=== PATIENT | female | born 1960 | race Caucasian/White ===

== ENCOUNTER → 2017-05-07 | Outpatient (CLI) | payer OTHER ==
[~2017-05-07] MED LIST: DITROPAN XL5 MG PO; ELIMITE 5%60 GM T; LISINOPRIL2.5 MG PO; MELOXICAM15 MG PO; PRILOSEC10 M1 PO; REMERON30 M1 PO; RISPERDAL3 M1 PO; TRAMADOL HCL50 MG PO; TRAZODONE HYDR100 MG PO
[2017-05-07 08:57] LABS: BASO % 0.6 % (0.0-1.0); EOS # 0.1 10*3/uL (0.0-0.4); EOS % 0.9 % (1.0-4.0); HEMATOCRIT 40.2 % (37.0-47.0); HEMOGLOBIN 13.3 g/dl (12.0-16.0); LYMPH # 2.3 10*3/uL (1.3-4.4); LYMPH % 33.6 % (27.0-41.0); MEAN CELL VOLUME 93.9 fl (81.0-99.0); MEAN CORPUSCULAR HGB 31.1 pg (27.0-31.0); MEAN CORPUSCULAR HGB CONC 33.1 g/dl (33.0-37.0); MEAN PLATELET VOLUME 11.4 fl (9.6-12.3); MONO # 0.4 10*3/uL (0.1-1.0); MONO % 5.6 % (3.0-9.0); PLATELET COUNT AUTOMATED 218 10*3/uL (130-400); RED BLOOD COUNT 4.28 10*6/uL (4.10-5.10); RED CELL DISTRI WIDTH 14.5 % (0-14.5); WHITE BLOOD COUNT 6.8 10*3/uL (4.8-10.8)
[2017-05-07 09:27] LABS: ALBUMIN 3.9 gm/dl (3.1-4.5); BILIRUBIN, TOTAL 0.3 mg/dl (0.2-1.0); BUN 10 mg/dl (7-24); CARBON DIOXIDE 30 mmol/L (21-32); CHLORIDE 104 mmol/L (98-107); CHOLESTEROL 171 mg/dL (<200); EST GLOM FILT AFRICAN AMERICAN > 60 ml/min; GLUCOSE 98 mg/dL (65-99); HDL CHOLESTEROL 72 mg/dl (40-60); LDL CHOLESTEROL 71 mg/dL (9-159); POTASSIUM 4.3 mmol/L (3.5-5.1); SGOT/AST 23 IU/L (3-35); SGPT/ALT 44 U/L (12-78); SODIUM 139 mmol/L (136-145); TOTAL PROTEIN 7.5 gm/dL (6.4-8.2); TRIGLYCERIDES 138 mg/dl (<150); VLDL CHOLESTEROL 28 mg/dL (6-40)
[2017-05-07 09:36] LABS: ALKALINE PHOSPHATASE 105 U/L (45-117)
== END ==
LOC: LAB 08:39
PROVIDERS: Nurse Practitioner Family
DX: J44.9 Chronic obstructive pulmonary disease, unspecified (principal); M81.0 Age-related osteoporosis without current pathological fracture; E55.9 Vitamin D deficiency, unspecified; E78.5 Hyperlipidemia, unspecified; R63.4 Abnormal weight loss; R19.7 Diarrhea, unspecified; F17.200 Nicotine dependence, unspecified, uncomplicated; I10 Essential (primary) hypertension; M47.894 Other spondylosis, thoracic region

== ENCOUNTER → 2017-10-09 | Outpatient (CLI) | payer OTHER | END | disposition home or self-care (01) | LOC: CT 09-20 11:00 | DX: D35.02 Benign neoplasm of left adrenal gland (principal); I25.10 Atherosclerotic heart disease of native coronary artery without angina pectoris; K31.9 Disease of stomach and duodenum, unspecified; R19.00 Intra-abdominal and pelvic swelling, mass and lump, unspecified site ==

== ENCOUNTER 2018-02-04 09:59 | Inpatient (IN) | payer OTHER ==
[~2018-02-04] VITALS: Ht 157.4 cm; Wt 49.7 kg
--- NOTE | ~2018-02-04 | PR ---
[place], [place] PROGRESS NOTE NAME: ANTONY WILLSON UNIT #: [id number] ROOM: 405 DOCTOR: BANDAR GRACE MD BIRTHDATE: [birth year] DOS: 02/06/2018 PULMONARY FOLLOWUP SUBJECTIVE: The patient noted quite comfortable. The patient resting in the bed, reduction shortness of breath, cough and wheezing was noted in the last 24 hours. Wanted to be discharged home. OBJECTIVE: VITAL SIGNS: For the patient shows a normal temperature, respiratory rate 18, heart rate 97, blood pressure 166/80. The pulse oxygen saturation 3 liters nasal cannula 95% saturation. HEENT: Examination shows head was atraumatic. Eyes nonicterus. NECK: Supple. CARDIOVASCULAR: S1, S2 is audible. LUNGS: Noted with moderate decreased breath sounds with occasional wheezing, no crackles. ABDOMEN: Soft, nontender. LABORATORY DATA: CT scan of the chest that was done with contrast, which was reviewed shows evidence of area of infiltration with nodular opacities noted in the lower lung. Small mediastinal and hilar lymph node enlargement was noted. IMPRESSION: 1. The patient with possibility of acute pneumonia. The patient's lower lung at this time noted acute with exacerbation of chronic obstructive pulmonary disease and acute chronic nicotine dependence. 2. Rule out pulmonary nodule mixed with the current acute infiltration. PLAN OF THERAPY: The patient could be discharged home on oral antibiotics and tapering dose of prednisone. She was recommended about followup in the office for further assessment to exclude any pulmonary nodules in the lungs. The patient with followup CT scan of the chest in the next few weeks. Abstinence of tobacco was recommended. The tobacco cessation was done for the patient more than 3 minutes. [place], [place] PROGRESS NOTE NAME: ANTONY WILLSON UNIT #: [id number] ROOM: 405 DOCTOR: BANDAR GRACE MD BIRTHDATE: [birth year] BANDAR PRAKASH MD CM:PNTRANS [id number] BANDAR HUNTER MD 02/06/18 1404 interface
--- NOTE | ~2018-02-04 | PROC NOTE ---
[place], [place] PROCEDURE NOTE NAME: ANTONY WILLSON UNIT #: [id number] ROOM: 405 DOCTOR: SUNDAY RENTERIA BIRTHDATE: [birth year] DOS: 02/05/2018 MODIFIED BARIUM SWALLOW LOCATION: [facility], room 405, bed 1. ORDERING PHYSICIAN: Dr. Echevarria. RADIOLOGIST: ____. BACKGROUND INFORMATION: The patient is a 57-year-old female who was seen for modified barium swallow. This test was ordered to rule out aspiration. Medical history is significant for acute on chronic respiratory failure, COPD exacerbation, sepsis and pneumonia. Further medical history includes emphysema, HTN and Tourette syndrome. The patient is currently receiving a regular diet and thin liquids. She denied any swallowing difficulty. For today's assessment, she was alert and able to follow commands. The patient was slightly short of breath, but reported that this is her baseline. She was receiving oxygen via nasal cannula. Oral peripheral examination revealed edentulous status. Lingual, labial and buccal skills were within normal limits in terms of strength, range of motion and coordination. METHODS AND MATERIALS USED FOR THE EXAM: The patient was positioned in the lateral plane and the exam was viewed under fluoroscopy. The patient was presented with a variety of consistencies to assess swallowing skills including applesauce mixed with barium presented in half teaspoon amounts, barium-coated banana and bread taken in bite size pieces and thin liquid barium taken by cup and straw. ORAL PHASE: Unremarkable. PHARYNGEAL PHASE: Unremarkable. ESOPHAGEAL PHASE: This phase of the swallow was not formally assessed during this exam. IMPRESSIONS AND RECOMMENDATIONS: Based upon assessment results, this 57-year-old patient presents with oral and pharyngeal swallowing skills that are within normal limits. Recommend she remain on regular diet and thin liquid. Follow up therapy is not warranted. Results and recommendations were shared with the patient and her nurse and they verbalized understanding. Thank you very much for this referral. Should you have any questions regarding this patient, please contact the speech pathologist at [phone]. [place], [place] PROCEDURE NOTE NAME: ANTONY WILLSON UNIT #: [id number] ROOM: 405 DOCTOR: SUNDAY RENTERIA BIRTHDATE: [birth year] RENTERIA CM:PROCNOTE:PROCEDURE NOTE 1425 [id number] SUNDAY RENTERIA
--- NOTE | ~2018-02-04 | CON ---
[place], [place] REPORT OF CONSULTATION NAME: ANTONY WILLSON [facility] #: [id number] UNIT #: [id number] ROOM: 405 DOCTOR: OLINDA HUNTER MDBANDAR BIRTHDATE: [birth year] DOS: 02/05/2018 PULMONARY CONSULTATION EVALUATION AND MANAGEMENT CONSULTATION REQUESTED BY: Hospitalist Services. REASON FOR CONSULTATION: This consultation was ordered for assessment of COPD. HISTORY OF PRESENT ILLNESS: This is a 57-year-old white female with history of longstanding tobacco use. She has been known with history of chronic obstructive pulmonary disease, which has been treated at home. Also, uses the oxygen supplementation for the chronic hypoxic respiratory failure, 2 liters. She presented to the hospital as the patient has developed symptoms of increased shortness of breath ongoing for the past 4-5 days. The symptoms are also associated with decreased appetite. The patient's symptoms were noted to gradual worsening. Denies symptoms of chest pain or any hemoptysis. The patient denies any symptoms of chest trauma. Chest tightness was reported as the patient presented to the Emergency Room with current symptoms. She was also reporting at that time symptoms of fever. She has been hospitalized and currently started treatment for acute exacerbation of COPD. The patient arrived in the Emergency Room in the private car. REVIEW OF SYSTEMS: CONSTITUTIONAL: The patient reported symptoms of low grade fever at home for the past couple of days with decreased appetite, also noted fatigue and tiredness. EYES: Denies discharge, redness or pain. EAR, NOSE, THROAT: No symptoms of sore throat, hoarseness, otalgia, postnasal drainage or epistaxis or sinus pain. CARDIOVASCULAR: Denies angina pain, edema, pain of lower extremities. GASTROINTESTINAL: No dysphagia, nausea, vomiting, diarrhea, abdominal pain, hematemesis, melena, or hematochezia. Denies any abnormal weight loss history. SKIN: Denies abnormal lesions or rashes. GENITOURINARY: No dysuria, suprapubic pain, hematuria. MUSCULOSKELETAL: Denies any acute joint pain. CENTRAL NERVOUS SYSTEM: No dizziness, headache or diplopia. The patient noted nonfocal without any seizures. The remaining review of system of the patient was noted as negative. PAST MEDICAL HISTORY: 1. Known with history of longstanding COPD. 2. Chronic hypoxic respiratory failure, use of oxygen 2-3 liter nasal cannula. 3. History of neurotic depression. 4. Essential hypertension. 5. History of overactive bladder. PAST SURGICAL HISTORY: Noted with some kind of abdominal surgery, details were unknown. [place], [place] REPORT OF CONSULTATION NAME: ANTONY WILLSON UNIT #: [id number] ROOM: 405 DOCTOR: BANDAR GRACE MD BIRTHDATE: [birth year] SOCIAL HISTORY: The patient is , has 3 children, lived at home. Tobacco use noted since early teens a pack of cigarettes per day. FAMILY HISTORY: The patient's both parents have been . HOME MEDICATIONS: Reported as use of lisinopril, meloxicam, Remeron, omeprazole, Ditropan XL, Risperdal, and trazodone. She also using oxygen supplementation 2-3 liters nasal cannula continuous use. DRUG ALLERGIES: Noted with no known drug allergies. PHYSICAL EXAMINATION: GENERAL: This is a 57-year-old female who has been noted much older than her stated age, at this time, sitting on the bed without any acute distress, using oxygen supplementation with the nasal cannula. VITAL SIGNS: The vital signs which were recorded shows a normal temperature, respiratory rate 18, heart rate of 80, blood pressure 174/87-152/82. The pulse oxygen saturation was noted as 91% on 3 liters nasal cannula, 83% on room air at rest. HEENT: Examination shows head was atraumatic. Eyes nonicterus. NECK: Supple. CARDIOVASCULAR: S1, S2 is audible. There were no added sounds. EXTREMITIES: Noted without any acute edema, clubbing, or cyanosis. LUNGS: The patient was noted with bilateral diffuse reduction in the breath sounds for the patient with expiratory wheezing without any crackles. ABDOMEN: Soft, flat, nontender, bowel sounds present. CENTRAL NERVOUS SYSTEM: Cranial nerves 2-12 intact. No focal deficit. MUSCULOSKELETAL: The patient noted with loss of muscle mass as well. SKIN: The visible skin, no lesions or rashes. LABORATORY DATA: The arterial blood gas done yesterday, pH of 7.43, PCO2 ____ on 3 L nasal cannula. CBC done yesterday on 02/04/2018, WBC count 15.6, hemoglobin 11.4, hematocrit 35.2, platelet count 322,000. The CMP that was done on 02/04/2018, normal BUN and creatinine. Albumin 2.9. CMP done on 02/05/2018 glucose 169, BUN and creatinine was normal. PT and PTT were noted as normal. CBC that was done on 02/05/2018, WBC count 14.8, hemoglobin 10.8, hematocrit 34.3, platelet count 361,000. Review of the 2-view chest x-ray that was done during this hospitalization were reviewed shows evidence of perihilar infiltration in lower lobe was noted with possibly bronchiectasis. The upper lungs appear to be secured; however, possibility of some bronchiectasis in that area cannot be excluded. There was no gross pleural fluid. Possible hilar lymph node enlargement. Liver mass lesion cannot be completely excluded. The patient had CT scan of the ____ abdomen done lower portion of the thoracic images were taken were reviewed. This was done in 09/2017. The images at that time does not show any significant ongoing acute disease. However, the bronchial tubes appeared to be enlarged. IMPRESSION: 1. The patient who has been currently admitted to the hospital with history of chronic hypoxic respiratory failure, presented with superimposed acute infection [place], [place] REPORT OF CONSULTATION NAME: ANTONY WILLSON UNIT #: [id number] ROOM: 405 DOCTOR: BANDAR GRACE MD BIRTHDATE: [birth year] as well as acute exacerbation of chronic obstructive pulmonary disease, possibly acute pneumonia can be excluded. Rule out bronchiectasis as well. 2. Chronic nicotine dependence history was known as well. 3. Possibly bronchial asthma cannot be excluded and will be considered in differential diagnosis. 4. Leukocytosis related to current acute infection etiology. PLAN OF MANAGEMENT: For most definitive assessment of the patient, CT scan of the chest was ordered to be done with intravenous contrast. After assessment of the CT scan of the chest, additional assessment for the patient will be ordered as necessary according to that. Other supportive therapy, plan of management to be continued. Usual care was ordered, the supportive care, therapies and plan of management. BANDAR PRAKASH MD CM:CONSTR:REPORT OF CONSULTATION 1255 02/05/18 2341 interface
[~2018-02-04 09:59] MED LIST changes: -LISINOPRIL2.5 MG PO; +LISINOPRIL20 MG PO; -MELOXICAM15 MG PO; +MOBIC7.5 MG PO
[2018-02-04 10:02] VITALS: BP 151/86
[2018-02-04 10:37] VITALS: BP 146/82
[2018-02-04 10:40] LABS: ABG BASE EXCESS 5.8 mmol/L (-2.0-2.0); ABG HCO3 30.6 mmol/l (22-26); ABG O2 SATURATION 92.7 % (95-97); ARTERIAL BLOOD GAS PCO2 46.1 mmHg (35-45); ARTERIAL BLOOD GAS PH 7.435 (7.35-7.45); ARTERIAL BLOOD GAS PO2 63.8 mmHg (80-90)
[2018-02-04 10:43] LABS: BASO % 0.1 % (0.0-1.0); HEMATOCRIT 35.2 % (37.0-47.0); HEMOGLOBIN 11.4 g/dl (12.0-16.0); LYMPH % 6.4 % (27.0-41.0); MEAN CELL VOLUME 90.3 fl (81.0-99.0); MEAN CORPUSCULAR HGB 29.2 pg (27.0-31.0); MEAN CORPUSCULAR HGB CONC 32.4 g/dl (33.0-37.0); MEAN PLATELET VOLUME 10.3 fl (9.6-12.3); MONO # 1.4 10*3/uL (0.1-1.0); MONO % 9.3 % (3.0-9.0); NEUT % 83.8 % (47.0-73.0); PLATELET COUNT AUTOMATED 332 10*3/uL (130-400); WHITE BLOOD COUNT 15.6 10*3/uL (4.8-10.8)
[2018-02-04 10:58] LABS: ALBUMIN 2.9 gm/dl (3.1-4.5); ALKALINE PHOSPHATASE 96 U/L (45-117); BUN 15 mg/dl (7-24); CHLORIDE 100 mmol/L (98-107); CREATININE 0.49 mg/dL (0.55-1.02); POTASSIUM 3.9 mmol/L (3.5-5.1); SGOT/AST 15 IU/L (3-35); SGPT/ALT 15 U/L (12-78); SODIUM 139 mmol/L (136-145); TOTAL PROTEIN 7.3 gm/dL (6.4-8.2)
[2018-02-04 11:20] VITALS: BP 150/72
[2018-02-04 12:20] VITALS: BP 153/79
[2018-02-04 16:00] VITALS: BP 159/81
[2018-02-04 20:00] VITALS: BP 126/76
[2018-02-05] VITALS: BP 152/82
[2018-02-05 05:58] LABS: ALBUMIN 2.7 gm/dl (3.1-4.5); ALKALINE PHOSPHATASE 89 U/L (45-117); BUN 12 mg/dl (7-24); CHLORIDE 109 mmol/L (98-107); CHOLESTEROL 144 mg/dL (<200); CREATININE 0.55 mg/dL (0.55-1.02); FREE T4 1.05 ng/dl (0.76-1.46); HDL CHOLESTEROL 51 mg/dl (40-60); LDL CHOLESTEROL 75 mg/dL (9-159); PHOSPHOROUS 3.2 mg/dL (2.5-4.9); POTASSIUM 3.8 mmol/L (3.5-5.1); SGOT/AST 13 IU/L (3-35); SGPT/ALT 17 U/L (12-78); SODIUM 145 mmol/L (136-145); TRIGLYCERIDES 91 mg/dl (<150); VLDL CHOLESTEROL 18 mg/dL (6-40)
[2018-02-05 06:30] LABS: ACT PARTIAL THROMBO TIME 22.8 SECONDS (20.8-31.5)
[2018-02-05 06:32] LABS: BASO % 0.1 % (0.0-1.0); HEMATOCRIT 34.3 % (37.0-47.0); HEMOGLOBIN 10.8 g/dl (12.0-16.0); LYMPH # 0.9 10*3/uL (1.3-4.4); LYMPH % 6.3 % (27.0-41.0); MEAN CELL VOLUME 91.5 fl (81.0-99.0); MEAN CORPUSCULAR HGB 28.8 pg (27.0-31.0); MEAN CORPUSCULAR HGB CONC 31.5 g/dl (33.0-37.0); MEAN PLATELET VOLUME 10.9 fl (9.6-12.3); MONO # 0.8 10*3/uL (0.1-1.0); MONO % 5.5 % (3.0-9.0); NEUT % 87.4 % (47.0-73.0); PLATELET COUNT AUTOMATED 361 10*3/uL (130-400); RED BLOOD COUNT 3.75 10*6/uL (4.10-5.10); WHITE BLOOD COUNT 14.8 10*3/uL (4.8-10.8)
[2018-02-05 07:32] LABS: VITAMIN D, 25-HYDROXY 46.4 ng/mL (30-100)
[2018-02-05 08:00] VITALS: BP 174/87
[2018-02-05 08:09] LABS: BILIRUBIN NEGATIVE (NEGATIVE); BLOOD NEGATIVE (NEGATIVE); CLARITY CLEAR (CLEAR); COLOR YELLOW (YELLOW); GLUCOSE NEGATIVE (NEGATIVE); KETONE 1+ (NEGATIVE); LEUKO ESTERASE NEGATIVE (NEGATIVE); NITRITE NEGATIVE (NEGATIVE); SPECIFIC GRAVITY 1.015 (1.005-1.030)
[2018-02-05 10:17] LABS: BACTERIA 1+
[2018-02-05 12:00] VITALS: BP 155/81
[2018-02-05 16:00] VITALS: BP 154/81
[2018-02-05 20:00] VITALS: BP 169/76
[2018-02-06 00:01] VITALS: BP 144/74
[2018-02-06 06:26] LABS: BASO % 0.2 % (0.0-1.0); HEMATOCRIT 32.6 % (37.0-47.0); HEMOGLOBIN 10.6 g/dl (12.0-16.0); LYMPH # 1.1 10*3/uL (1.3-4.4); LYMPH % 8.2 % (27.0-41.0); MEAN CELL VOLUME 88.8 fl (81.0-99.0); MEAN CORPUSCULAR HGB 28.9 pg (27.0-31.0); MEAN CORPUSCULAR HGB CONC 32.5 g/dl (33.0-37.0); MEAN PLATELET VOLUME 10.3 fl (9.6-12.3); MONO # 0.8 10*3/uL (0.1-1.0); MONO % 5.7 % (3.0-9.0); NEUT # 11.2 10*3/uL (2.3-7.9); NEUT % 84.4 % (47.0-73.0); PLATELET COUNT AUTOMATED 380 10*3/uL (130-400); RED BLOOD COUNT 3.67 10*6/uL (4.10-5.10); RED CELL DISTRI WIDTH 14.3 % (0-14.5); WHITE BLOOD COUNT 13.3 10*3/uL (4.8-10.8)
[2018-02-06 06:42] LABS: BUN 11 mg/dl (7-24); CHLORIDE 104 mmol/L (98-107); CREATININE 0.51 mg/dL (0.55-1.02); POTASSIUM 3.3 mmol/L (3.5-5.1); SODIUM 142 mmol/L (136-145)
[2018-02-06 08:00] VITALS: BP 166/80
[2018-02-06 12:00] VITALS: BP 142/90
[2018-02-06] MEDS ORDERED: ATORVASTATIN CA40 M1 PO (13:42)
[2018-02-06] MEDS ORDERED: OXYBUTYNIN CHLOR5 MG PO (13:43)
[2018-02-06] MEDS ORDERED: LEVAQUIN750 M1 PO (13:46)
[2018-02-06] MEDS ORDERED: PREDNISONE10 MG PO (13:46)
[2018-02-06] MEDS ORDERED: BENZONATATE100 M1 PO (13:50)
[2018-02-06] MEDS ORDERED: DULE1ARO INH (13:50)
[2018-02-12 14:06] LABS: MITOGEN VALUE 0.13 IU/mL (.); TB Ag VALUE 0.04 IU/mL (.); TB GOLD Indeterminate (Negative)
== END 2018-02-06 15:58 | disposition home or self-care (01) | DRG 871 ==
LOC: ED 09:59 → EDHOLD 11:40 → 4E 11:40
PROVIDERS: Emergency Medicine; Family Medicine; Internal Medicine Critical Care Medicine; Student in an Organized Health Care Education/Training Program
PROC: BD11YZZ Fluoroscopy of Esophagus using Other Contrast (ICD-10-PCS; principal; 2018-02-05)
DX: A41.9 Sepsis, unspecified organism (principal); J96.21 Acute and chronic respiratory failure with hypoxia; J69.0 Pneumonitis due to inhalation of food and vomit; J96.22 Acute and chronic respiratory failure with hypercapnia; E44.0 Moderate protein-calorie malnutrition; J44.1 Chronic obstructive pulmonary disease with (acute) exacerbation; Z99.81 Dependence on supplemental oxygen; I10 Essential (primary) hypertension; R65.20 Severe sepsis without septic shock; D64.9 Anemia, unspecified; R73.9 Hyperglycemia, unspecified; F17.210 Nicotine dependence, cigarettes, uncomplicated; F32.9 Major depressive disorder, single episode, unspecified; N32.81 Overactive bladder; Z71.6 Tobacco abuse counseling; Z68.20 Body mass index [BMI] 20.0-20.9, adult; Z79.899 Other long term (current) drug therapy

== ENCOUNTER 2018-02-20 10:58 | Inpatient (IN) | payer OTHER ==
[~2018-02-20] VITALS: Ht 157.4 cm; Wt 41.5 kg
[2018-02-20] VITALS (11 sets, daily range): BP systolic 124–152; BP diastolic 71–85
[~2018-02-20 10:58] MED LIST changes: +ATORVASTATIN CA40 M1 PO; +BENZONATATE100 M1 PO; +DULE1ARO INH; +LEVAQUIN750 M1 PO; +OXYBUTYNIN CHLOR5 MG PO; +PREDNISONE10 MG PO
[2018-02-20 11:30] LABS: BASO # 0.1 10*3/uL (0.0-0.1); BASO % 0.5 % (0.0-1.0); EOS # 0.1 10*3/uL (0.0-0.4); EOS % 0.8 % (1.0-4.0); HEMATOCRIT 36.9 % (37.0-47.0); HEMOGLOBIN 11.6 g/dl (12.0-16.0); LYMPH # 3.8 10*3/uL (1.3-4.4); LYMPH % 37.8 % (27.0-41.0); MEAN CELL VOLUME 92.3 fl (81.0-99.0); MEAN CORPUSCULAR HGB CONC 31.4 g/dl (33.0-37.0); MEAN PLATELET VOLUME 10.3 fl (9.6-12.3); MONO # 0.7 10*3/uL (0.1-1.0); MONO % 7.4 % (3.0-9.0); NEUT # 5.3 10*3/uL (2.3-7.9); NEUT % 53.3 % (47.0-73.0); PLATELET COUNT AUTOMATED 379 10*3/uL (130-400); RED CELL DISTRI WIDTH 15.5 % (0-14.5)
[2018-02-20 11:40] LABS: ACT PARTIAL THROMBO TIME 20.3 SECONDS (20.8-31.5); INTERNATIONAL NORM RATIO 0.9 (2.0-3.5)
[2018-02-20 11:49] LABS: ALBUMIN 3.2 gm/dl (3.1-4.5); ALKALINE PHOSPHATASE 92 U/L (45-117); BUN 14 mg/dl (7-24); CHLORIDE 102 mmol/L (98-107); CREATININE 0.68 mg/dL (0.55-1.02); POTASSIUM 3.5 mmol/L (3.5-5.1); SGOT/AST 71 IU/L (3-35); SGPT/ALT 112 U/L (12-78); SODIUM 140 mmol/L (136-145); TOTAL PROTEIN 6.2 gm/dL (6.4-8.2)
[2018-02-20 11:51] LABS: TROPONIN I < 0.015 ng/ml (<0.045)
[2018-02-21] VITALS: BP 156/82
[2018-02-21 06:26] LABS: BASO % 0.3 % (0.0-1.0); EOS # 0.1 10*3/uL (0.0-0.4); EOS % 1.7 % (1.0-4.0); HEMATOCRIT 33.9 % (37.0-47.0); HEMOGLOBIN 10.6 g/dl (12.0-16.0); LYMPH # 3.5 10*3/uL (1.3-4.4); LYMPH % 45.3 % (27.0-41.0); MEAN CELL VOLUME 91.6 fl (81.0-99.0); MEAN CORPUSCULAR HGB 28.6 pg (27.0-31.0); MEAN CORPUSCULAR HGB CONC 31.3 g/dl (33.0-37.0); MEAN PLATELET VOLUME 10.5 fl (9.6-12.3); MONO # 0.6 10*3/uL (0.1-1.0); MONO % 7.8 % (3.0-9.0); NEUT # 3.5 10*3/uL (2.3-7.9); NEUT % 44.6 % (47.0-73.0); PLATELET COUNT AUTOMATED 300 10*3/uL (130-400); RED CELL DISTRI WIDTH 15.5 % (0-14.5); WHITE BLOOD COUNT 7.8 10*3/uL (4.8-10.8)
[2018-02-21 06:58] LABS: ACT PARTIAL THROMBO TIME 21.3 SECONDS (20.8-31.5)
[2018-02-21 07:00] LABS: BUN 13 mg/dl (7-24); CHLORIDE 106 mmol/L (98-107); CREATININE 0.49 mg/dL (0.55-1.02); POTASSIUM 4.3 mmol/L (3.5-5.1); SODIUM 143 mmol/L (136-145)
[2018-02-21 07:59] LABS: ALBUMIN 2.8 gm/dl (3.1-4.5); ALKALINE PHOSPHATASE 76 U/L (45-117); BUN 14 mg/dl (7-24); CHLORIDE 106 mmol/L (98-107); CREATININE 0.53 mg/dL (0.55-1.02); POTASSIUM 4.3 mmol/L (3.5-5.1); SGOT/AST 34 IU/L (3-35); SGPT/ALT 78 U/L (12-78); SODIUM 143 mmol/L (136-145); TOTAL PROTEIN 5.4 gm/dL (6.4-8.2)
[2018-02-21 08:00] VITALS: BP 130/59
[2018-02-21 08:17] LABS: HEPATITIS B SURFACE AG Negative (Negative); HEPATITIS C VIRUS ANTIBODY <0.1 s/co (0.0-0.9)
[2018-02-21 12:42] VITALS: BP 122/67
== END 2018-02-21 15:00 | disposition home or self-care (01) | DRG 392 ==
LOC: ED 10:58 → 4E 13:26 → EDHOLD 13:26 → 4E 13:46
PROVIDERS: Emergency Medicine; Internal Medicine
PROC: 4A02XM4 Measurement of Cardiac Total Activity, External Approach (ICD-10-PCS; principal; 2018-02-21)
PROC: 3E073KZ Introduction of Other Diagnostic Substance into Coronary Artery, Percutaneous Approach (ICD-10-PCS; 2018-02-21)
DX: K21.9 Gastro-esophageal reflux disease without esophagitis (principal); J96.11 Chronic respiratory failure with hypoxia; E44.1 Mild protein-calorie malnutrition; E83.41 Hypermagnesemia; Z99.81 Dependence on supplemental oxygen; Z68.1 Body mass index [BMI] 19.9 or less, adult; R07.89 Other chest pain; R74.0 Nonspecific elevation of levels of transaminase and lactic acid dehydrogenase [LDH]; E83.51 Hypocalcemia; J44.9 Chronic obstructive pulmonary disease, unspecified; I10 Essential (primary) hypertension; F17.210 Nicotine dependence, cigarettes, uncomplicated; E78.5 Hyperlipidemia, unspecified; D64.9 Anemia, unspecified; Z82.49 Family history of ischemic heart disease and other diseases of the circulatory system; Z79.2 Long term (current) use of antibiotics; Z79.899 Other long term (current) drug therapy; Z98.51 Tubal ligation status; Z71.6 Tobacco abuse counseling; Z72.89 Other problems related to lifestyle

== ENCOUNTER → 2018-04-04 | Outpatient (CLI) | payer OTHER ==
[2018-04-04 11:41] LABS: BUN 14 mg/dl (7-24); CREATININE 0.61 mg/dL (0.55-1.02)
== END | disposition home or self-care (01) ==
LOC: CT 03-28 13:00
PROVIDERS: Internal Medicine Critical Care Medicine
DX: J43.9 Emphysema, unspecified (principal); Z87.891 Personal history of nicotine dependence

== ENCOUNTER → 2018-09-10 | Outpatient (CLI) | payer OTHER | END | disposition home or self-care (01) | LOC: MAMMO 09-03 10:00 | DX: Z12.31 Encounter for screening mammogram for malignant neoplasm of breast (principal) ==

== ENCOUNTER → 2018-11-19 | Day surgery (SDC) | payer OTHER ==
--- NOTE | ~2018-11-19 | O ---
[place], [place] OPERATIVE NOTE NAME: ANTONY WILLSON UNIT #: [id number] ROOM: DOCTOR: KEERTHI FIERRO MD BIRTHDATE: [birth year] DOS: 11/19/2018 HISTORY OF PRESENT ILLNESS: This is a 58-year-old patient who presented with a chief complaint of colonic screening, undergoing investigation. ALLERGIES: No known medication. FAMILY HISTORY: Noncontributory. PAST SURGICAL HISTORY: Ventral hernia, carpal tunnel. PAST MEDICAL HISTORY: COPD, hypercholesterolemia. SOCIAL HISTORY: Smoker and stopped 8 months ago, nonalcohol consumer. PROCEDURE: Today's procedure part of investigation is colonoscopy. PREMEDICATION: Propofol. SCOPE: Olympus forward-viewing colonoscope 10L video. REPORT: After putting the patient in the left lateral position and application of lubricant to the scope, the scope was introduced. Thereafter, under direct visualization, advanced through the length of colon without difficulty. Base of the cecum explored, appendiceal orifice identified, ileocecal valve was defined. No acute pathology identified except a sessile polypoid lesion at hepatic flexure and retention of some liquid stool in the right colon. The patient extubated, tolerated the procedure well. IMPRESSION: As above, retained stool, sessile polypoid lesion, hepatic flexure, status post piecemeal polypectomy. PLAN AND DISCUSSION: High fiber diet. ACTIVITY: Ad jairo. FOLLOWUP: Routinely with you in office, p.r.n. visit with us in GI Clinic. [place], [place] OPERATIVE NOTE NAME: ANTONY WILLSON [place] UNIT #: [id number] ROOM: DOCTOR: KEERTHI FIERRO MD BIRTHDATE: [birth year] KEERTHI FIERRO MD CM:OPRECORD:OPERATIVE NOTE 1047 1146 KEERTHI FIERRO MD 11/19/18 1146 interface
[2018-11-19 09:13] VITALS: BP 173/84
[2018-11-19 10:44] VITALS: BP 148/89
[2018-11-19 11:15] VITALS: BP 154/97
== END | disposition home or self-care (01) ==
LOC: SDC 11-13 08:45
DX: Z12.11 Encounter for screening for malignant neoplasm of colon (principal); D12.3 Benign neoplasm of transverse colon; K21.9 Gastro-esophageal reflux disease without esophagitis; E66.9 Obesity, unspecified; I10 Essential (primary) hypertension; J43.9 Emphysema, unspecified; F32.9 Major depressive disorder, single episode, unspecified; Z98.890 Other specified postprocedural states; E78.00 Pure hypercholesterolemia, unspecified; Z87.891 Personal history of nicotine dependence; Z98.51 Tubal ligation status; Z86.010 Personal history of colon polyps; Z79.899 Other long term (current) drug therapy; Z72.89 Other problems related to lifestyle

== ENCOUNTER → 2019-09-14 | Outpatient (CLI) | payer OTHER | END | disposition home or self-care (01) | LOC: CARD 08-24 09:30 | DX: I10 Essential (primary) hypertension (principal); R07.9 Chest pain, unspecified ==

== ENCOUNTER → 2021-03-03 | Outpatient (CLI) | payer OTHER ==
[2021-03-03 10:34] LABS: BASO % 0.7 % (0.0-1.0); BUN 10 mg/dl (7-24); CHLORIDE 108 mmol/L (98-107); CHOLESTEROL 121 mg/dL (<200); CREATININE 0.74 mg/dL (0.55-1.02); EOS # 0.1 10*3/uL (0.0-0.4); EOS % 1.6 % (1.0-4.0); HEMATOCRIT 35.7 % (37.0-47.0); LDL CHOLESTEROL 44 mg/dL (9-159); LYMPH # 1.7 10*3/uL (1.3-4.4); LYMPH % 29.6 % (27.0-41.0); MEAN CELL VOLUME 86.9 fl (81.0-99.0); MEAN CORPUSCULAR HGB 26.3 pg (27.0-31.0); MEAN CORPUSCULAR HGB CONC 30.3 g/dl (33.0-37.0); MEAN PLATELET VOLUME 11.5 fl (9.6-12.3); MONO # 0.4 10*3/uL (0.1-1.0); MONO % 7.6 % (3.0-9.0); NEUT # 3.4 10*3/uL (2.3-7.9); NEUT % 60.3 % (47.0-73.0); PLATELET COUNT AUTOMATED 249 10*3/uL (130-400); POTASSIUM 3.4 mmol/L (3.5-5.1); RED BLOOD COUNT 4.11 10*6/uL (4.10-5.10); RED CELL DISTRI WIDTH 14.9 % (0-14.5); SODIUM 140 mmol/L (136-145); TRIGLYCERIDES 112 mg/dl (<150); WHITE BLOOD COUNT 5.7 10*3/uL (4.8-10.8)
== END | disposition home or self-care (01) ==
LOC: LAB 09:20
PROVIDERS: ATTEND Internal Medicine
DX: I10 Essential (primary) hypertension (principal); R10.9 Unspecified abdominal pain; E78.5 Hyperlipidemia, unspecified; R19.7 Diarrhea, unspecified; Z13.0 Encounter for screening for diseases of the blood and blood-forming organs and certain disorders involving the immune mechanism

== ENCOUNTER → 2021-08-16 | Outpatient (CLI) | payer OTHER | END | disposition home or self-care (01) | LOC: MAMMO 09:28 | PROVIDERS: ATTEND Nurse Practitioner Family | DX: Z12.31 Encounter for screening mammogram for malignant neoplasm of breast (principal); N64.89 Other specified disorders of breast ==

== ENCOUNTER → 2023-09-02 | Outpatient (CLI) | payer OTHER ==
[~2023-09-02] MED LIST changes: +CELECOXIB200 M1 PO; +FLUTICASONE PRO12 G3 INH; +LOPRESSOR25 MG PO; +MIRTAZAPINE45 MG PO; +MUCINEX ER600 MG PO; +OMEPRAZOLE MAGN20 MG PO; +RISPERIDONE3 M2 PO; +SEREVENT DISKU50 MCG INH; +VENT7GM INH; +VIBRA-TAB100 MG PO; +ZITHROMAX TRI-500 M1 PO
== END | disposition home or self-care (01) ==
LOC: CT 11:00
PROVIDERS: ATTEND Internal Medicine Critical Care Medicine
DX: J43.9 Emphysema, unspecified (principal); J84.10 Pulmonary fibrosis, unspecified; Z87.891 Personal history of nicotine dependence

== ENCOUNTER → 2023-12-25 | Outpatient (CLI) | payer OTHER | END | disposition home or self-care (01) | LOC: RAD 10:19 | PROVIDERS: ATTEND Internal Medicine | DX: M48.02 Spinal stenosis, cervical region (principal); M43.12 Spondylolisthesis, cervical region; M25.78 Osteophyte, vertebrae ==

== ENCOUNTER 2024-07-17 08:48 | Emergency (ER) | payer OTHER ==
[~2024-07-17] VITALS: Ht 157.4 cm; Wt 42.7 kg
[2024-07-17] MEDS ORDERED: HYDROmorphONE Hydrochloride 0.5 MG/0.5 ML SYRINGE IV ONE ×2 (09:30→10:40)
[2024-07-17] MEDS ORDERED: ceFAZolin sodium 2 GM in SYRINGE INFUSION 20 ML IV ONE (09:30)
[2024-07-17] MEDS ORDERED: Ondansetron Hydrochloride 4 MG/2 ML VIAL IV ONE (09:30)
[2024-07-17] MEDS ORDERED: Tdap Vaccine 0.5 ML SYR (Adult Vaccine) IM ONE (09:30)
[2024-07-17 09:38] LABS: BASO % 0.2 % (0.0-1.0); EOS # 0.1 10*3/uL (0.0-0.4); EOS % 0.6 % (1.0-4.0); HEMATOCRIT 34.9 % (37.0-47.0); LYMPH # 2.5 10*3/uL (1.3-4.4); LYMPH % 20.1 % (27.0-41.0); MEAN CELL VOLUME 92.1 fl (81.0-99.0); MEAN CORPUSCULAR HGB 27.7 pg (27.0-31.0); MEAN CORPUSCULAR HGB CONC 30.1 g/dl (33.0-37.0); MEAN PLATELET VOLUME 11.2 fl (9.6-12.3); MONO # 1.3 10*3/uL (0.1-1.0); MONO % 10.8 % (3.0-9.0); NEUT # 8.4 10*3/uL (2.3-7.9); NEUT % 67.8 % (47.0-73.0); PLATELET COUNT AUTOMATED 298 10*3/uL (130-400); RED BLOOD COUNT 3.79 10*6/uL (4.10-5.10); RED CELL DISTRI WIDTH 15.6 % (0-14.5); WHITE BLOOD COUNT 12.3 10*3/uL (4.8-10.8)
[2024-07-17 09:57] LABS: ALKALINE PHOSPHATASE 95 U/L (46-116); BUN 15 mg/dl (9-23); CHLORIDE 105 mmol/L (98-107); POTASSIUM 3.7 mmol/L (3.4-5.1); SGPT/ALT 26 U/L (5-49); TOTAL PROTEIN 6.6 gm/dL (6.0-8.0)
== END 2024-07-17 11:41 | disposition short-term general hospital (02) ==
LOC: ED 08:48
PROVIDERS: Internal Medicine
DX: S52.592B Other fractures of lower end of left radius, initial encounter for open fracture type I or II (principal); S52.602B Unspecified fracture of lower end of left ulna, initial encounter for open fracture type I or II; J44.9 Chronic obstructive pulmonary disease, unspecified; I11.0 Hypertensive heart disease with heart failure; I50.9 Heart failure, unspecified; F32.A Depression, unspecified; K21.9 Gastro-esophageal reflux disease without esophagitis; Z98.890 Other specified postprocedural states; W19.XXXA Unspecified fall, initial encounter; Y93.89 Activity, other specified; Y92.89 Other specified places as the place of occurrence of the external cause; Y99.8 Other external cause status

== ENCOUNTER 2024-08-14 11:07 | Inpatient (IN) | payer OTHER ==
[~2024-08-14] VITALS: Ht 157.5 cm; Wt 55.4 kg
[2024-08-14 11:13] VITALS: BP 153/86
[2024-08-14] MEDS ORDERED: ONDANSETRON HYDR8 MG PO (11:20)
[2024-08-14] MEDS ORDERED: OXYCODONE-ACET1 EAC3 PO (11:20)
[2024-08-14] MEDS ORDERED: TRAZODONE100 MG PO (11:21)
[2024-08-14] MEDS ORDERED: VITAMIN D2 1.25MG(50 (11:22)
[2024-08-14 11:50] LABS: HEMATOCRIT 32.1 % (37.0-47.0); MEAN CELL VOLUME 85.1 fl (81.0-99.0); MEAN CORPUSCULAR HGB 27.1 pg (27.0-31.0); MEAN CORPUSCULAR HGB CONC 31.8 g/dl (33.0-37.0); MEAN PLATELET VOLUME 9.8 fl (9.6-12.3); PLATELET COUNT AUTOMATED 355 10*3/uL (130-400); RED BLOOD COUNT 3.77 10*6/uL (4.10-5.10); RED CELL DISTRI WIDTH 14.4 % (0-14.5); WHITE BLOOD COUNT 10.7 10*3/uL (4.8-10.8)
[2024-08-14 12:11] LABS: ALKALINE PHOSPHATASE 121 U/L (46-116); BUN 16 mg/dl (9-23); CHLORIDE 95 mmol/L (98-107); LIPASE 31 U/L (12-53); POTASSIUM 4.2 mmol/L (3.4-5.1); SGPT/ALT 11 U/L (5-49); TOTAL PROTEIN 6.9 gm/dL (6.0-8.0)
[2024-08-14 12:14] LABS: MANUAL DIFF REFLEX YES
[2024-08-14 12:20] LABS: ACANTHOCYTES FEW; BURR CELLS FEW; OVALOCYTES FEW; PLATELET SUFFICIENCY NORMAL (NORMAL); POLYCHROMASIA SLIGHT; SCHISTOCYTES FEW; TOTAL CELLS COUNTED 100 #CELLS
[2024-08-14] MEDS ORDERED: Ondansetron Hydrochloride 4 MG TAB PO ONE (12:40)
[2024-08-14] MEDS ORDERED: SODIUM CHLORIDE 0.9% 1,000 ML IV ONE ×2 (12:50→16:15)
[2024-08-14] MEDS ORDERED: LINACLOTIDE 145 MCG CAP PO ONE (13:05)
[2024-08-14] MEDS ORDERED: ACETAMINOPHEN 650 MG SUPP R PRN (14:10)
[2024-08-14] MEDS ORDERED: MORPHINE Sulfate 2 MG/ML SYR IV PRN (14:10)
[2024-08-14] MEDS ORDERED: Ondansetron Hydrochloride 4 MG/2 ML VIAL IV PRN (14:10)
[2024-08-14] MEDS ORDERED: Acetaminophen/Hydrocodone 5 MG/325 MG TABLET PO PRN (14:10)
[2024-08-14] MEDS ORDERED: ACETAMINOPHEN 325 MG TAB PO PRN (14:10)
[2024-08-14] MEDS ORDERED: IOHEXOL 9 MG/ML (IODINE) ORAL SOLUTION PO ONE (14:15)
[2024-08-14] MEDS ORDERED: Pantoprazole Sodium 40 MG TAB PO PRN (14:15)
[2024-08-14] MEDS ORDERED: IOHEXOL 300 MG/ML 100 ML VIAL IV ONE (14:15)
[2024-08-14 15:14] VITALS: BP 170/80
[2024-08-14 16:15] VITALS: BP 160/88
[2024-08-14 20:00] VITALS: BP 144/88
[2024-08-14] MEDS ORDERED: LORazepam 2 MG/ML VIAL IV ONE (21:35)
[2024-08-15] VITALS: BP 139/62
[2024-08-15] MEDS ORDERED: LORazepam 2 MG/ML VIAL IV PRN (01:05)
[2024-08-15] MEDS ORDERED: Pantoprazole Sodium 40 MG VIAL IV SCH (06:00)
[2024-08-15 06:08] LABS: HEMATOCRIT 27.4 % (37.0-47.0); MEAN CELL VOLUME 86.2 fl (81.0-99.0); MEAN CORPUSCULAR HGB 27.4 pg (27.0-31.0); MEAN CORPUSCULAR HGB CONC 31.8 g/dl (33.0-37.0); PLATELET COUNT AUTOMATED 278 10*3/uL (130-400); RED BLOOD COUNT 3.18 10*6/uL (4.10-5.10); RED CELL DISTRI WIDTH 14.4 % (0-14.5); WHITE BLOOD COUNT 5.3 10*3/uL (4.8-10.8)
[2024-08-15 06:16] LABS: MANUAL DIFF REFLEX YES
[2024-08-15 06:48] LABS: BUN 12 mg/dl (9-23); CHLORIDE 107 mmol/L (98-107)
[2024-08-15 07:28] LABS: BILIRUBIN Negative (Negative); BLOOD Negative (Negative); CLARITY Clear (Clear); COLOR Yellow (Yellow); GLUCOSE Negative (Negative); KETONE 1+ (Negative); LEUKO ESTERASE Negative (Negative); NITRITE Negative (Negative); SPECIFIC GRAVITY 1.015 (1.001-1.030); UROBILINOGEN 0.2 E.U./dl (0.0-1.0)
[2024-08-15 08:00] VITALS: BP 145/68
[2024-08-15 08:09] LABS: WBC 0-2 wbc/hpf (0-5)
[2024-08-15 09:17] LABS: OVALOCYTES FEW; PLATELET SUFFICIENCY NORMAL (NORMAL); POLYCHROMASIA SLIGHT; TOTAL CELLS COUNTED 100 #CELLS
[2024-08-15] MEDS ORDERED: Enoxaparin Sodium 40 MG/0.4 ML SYR SC SCH (10:00)
[2024-08-15 12:00] VITALS: BP 149/65
[2024-08-15 16:00] VITALS: BP 150/63
[2024-08-15] MEDS ORDERED: BUDESONIDE 0.5 MG AMP NEB SCH (17:20)
[2024-08-15] MEDS ORDERED: Albuterol Sulfate 2.5 MG/3 ML VIAL NEB SCH (18:00)
[2024-08-15] MEDS ORDERED: SODIUM CHLORIDE 0.9% 1,000 ML IV ONE (18:35)
[2024-08-15] MEDS ORDERED: BENZOCAINE T ONE (18:40)
[2024-08-15] MEDS ORDERED: Benzocaine/Menthol 1 LOZ LOZENGE PO PRN (18:50)
[2024-08-15 20:00] VITALS: BP 149/64
[2024-08-16] VITALS: BP 153/72
[2024-08-16] MEDS ORDERED: Magnesium Hydroxide 30 ML UDC PO PRN (05:05)
[2024-08-16] MEDS ORDERED: Na Phos, Dibasic/Na Phos, Mo 1 EA BOT R ONE (05:05)
[2024-08-16] MEDS ORDERED: Polyethylene Glycol 3350 17 GM PACKET PO SCH (05:05)
[2024-08-16] MEDS ORDERED: DEXTROSE 5% 250 ML IV ONE (05:25)
[2024-08-16] MEDS ORDERED: SODIUM CHLORIDE 0.9% 1,000 ML IV ONE (05:25)
[2024-08-16 05:39] LABS: BUN 10 mg/dl (9-23); CHLORIDE 107 mmol/L (98-107); POTASSIUM 3.9 mmol/L (3.4-5.1)
[2024-08-16] MEDS ORDERED: DEXTROSE 10 % IN WATER 250 ML IV ONE ×2 (05:39→05:50)
[2024-08-16 06:24] LABS: BASO # 0.1 10*3/uL (0.0-0.1); BASO % 0.7 % (0.0-1.0); EOS # 0.1 10*3/uL (0.0-0.4); HEMATOCRIT 31.3 % (37.0-47.0); MEAN CORPUSCULAR HGB 27.2 pg (27.0-31.0); MEAN CORPUSCULAR HGB CONC 29.1 g/dl (33.0-37.0); MEAN PLATELET VOLUME 10.1 fl (9.6-12.3); MONO # 1.2 10*3/uL (0.1-1.0); MONO % 18.4 % (3.0-9.0); NEUT % 58.9 % (47.0-73.0); PLATELET COUNT AUTOMATED 311 10*3/uL (130-400); RED BLOOD COUNT 3.34 10*6/uL (4.10-5.10); RED CELL DISTRI WIDTH 14.5 % (0-14.5); WHITE BLOOD COUNT 6.7 10*3/uL (4.8-10.8)
[2024-08-16 07:08] LABS: MEAN CELL VOLUME 93.7 fl (81.0-99.0)
[2024-08-16 08:00] VITALS: BP 154/74
[2024-08-16] MEDS ORDERED: CELECOXIB 200 MG CAP PO SCH (10:00)
[2024-08-16] MEDS ORDERED: Metoprolol Tartrate 25 MG TAB PO SCH (10:00)
[2024-08-16] MEDS ORDERED: LISINOPRIL 20 MG TAB PO SCH (10:00)
[2024-08-16] MEDS ORDERED: Oxybutynin Chloride 5 MG TAB PO SCH (10:00)
[2024-08-16 12:00] VITALS: BP 165/72
[2024-08-16 16:00] VITALS: BP 156/69
[2024-08-16] MEDS ORDERED: ATORVASTATIN CALCIUM 40 MG TABLET PO SCH (18:00)
[2024-08-16 20:00] VITALS: BP 167/96
[2024-08-16] MEDS ORDERED: Mirtazapine 15 MG TAB PO SCH (22:00)
[2024-08-16] MEDS ORDERED: RISPERIDONE 3 MG TAB PO SCH (22:00)
[2024-08-16] MEDS ORDERED: RISPERIDONE 1 MG TAB PO SCH (22:00)
[2024-08-17] VITALS: BP 140/78
[2024-08-17 06:14] LABS: BUN 7 mg/dl (9-23); CHLORIDE 106 mmol/L (98-107); POTASSIUM 3.6 mmol/L (3.4-5.1)
[2024-08-17 06:32] LABS: BASO % 0.4 % (0.0-1.0); EOS # 0.1 10*3/uL (0.0-0.4); HEMATOCRIT 27.1 % (37.0-47.0); MEAN CORPUSCULAR HGB 27.5 pg (27.0-31.0); MEAN CORPUSCULAR HGB CONC 31.4 g/dl (33.0-37.0); MEAN PLATELET VOLUME 10.3 fl (9.6-12.3); MONO % 11.3 % (3.0-9.0); NEUT # 6.4 10*3/uL (2.3-7.9); NEUT % 71.2 % (47.0-73.0); PLATELET COUNT AUTOMATED 302 10*3/uL (130-400); RED BLOOD COUNT 3.09 10*6/uL (4.10-5.10); RED CELL DISTRI WIDTH 14.5 % (0-14.5)
[2024-08-17 06:33] LABS: MEAN CELL VOLUME 87.7 fl (81.0-99.0)
[2024-08-17 08:00] VITALS: BP 146/71
[2024-08-17 12:00] VITALS: BP 133/67
[2024-08-17] MEDS ORDERED: DULCOLAX STOOL100 MG PO (12:11)
== END 2024-08-17 14:15 | disposition home or self-care (01) | DRG 247 ==
LOC: ED 11:07 → 4E 13:29 → EDHOLD 13:29 → 4E 14:56
PROVIDERS: Nurse Practitioner; Student in an Organized Health Care Education/Training Program; ADMIT Family Medicine; ATTEND Family Medicine
PROC: 0D9670Z Drainage of Stomach with Drainage Device, Via Natural or Artificial Opening (ICD-10-PCS; principal; 2024-08-15)
DX: K56.699 Other intestinal obstruction unspecified as to partial versus complete obstruction (principal); E87.1 Hypo-osmolality and hyponatremia; K59.00 Constipation, unspecified; J44.9 Chronic obstructive pulmonary disease, unspecified; R65.10 Systemic inflammatory response syndrome (SIRS) of non-infectious origin without acute organ dysfunction; I10 Essential (primary) hypertension; R00.1 Bradycardia, unspecified; F32.9 Major depressive disorder, single episode, unspecified; N32.81 Overactive bladder; E78.5 Hyperlipidemia, unspecified; R73.9 Hyperglycemia, unspecified; D64.9 Anemia, unspecified; Z87.891 Personal history of nicotine dependence; Z82.49 Family history of ischemic heart disease and other diseases of the circulatory system; Z79.899 Other long term (current) drug therapy; Z98.51 Tubal ligation status; Z79.1 Long term (current) use of non-steroidal anti-inflammatories (NSAID); Z79.51 Long term (current) use of inhaled steroids

== ENCOUNTER → 2024-10-27 | Outpatient (CLI) | payer OTHER ==
[~2024-10-27] MED LIST changes: +DULCOLAX STOOL100 MG PO; +ONDANSETRON HYDR8 MG PO; +OXYCODONE-ACET1 EAC3 PO; +TRAZODONE100 MG PO; +VITAMIN D2 1.25MG(50
== END | disposition home or self-care (01) ==
LOC: CT 09-28 10:00
PROVIDERS: ATTEND Internal Medicine Critical Care Medicine
DX: Z12.2 Encounter for screening for malignant neoplasm of respiratory organs (principal); J43.9 Emphysema, unspecified; J98.11 Atelectasis; R91.8 Other nonspecific abnormal finding of lung field; I25.10 Atherosclerotic heart disease of native coronary artery without angina pectoris; I51.7 Cardiomegaly; Z87.891 Personal history of nicotine dependence

== ENCOUNTER → 2025-02-01 | Outpatient (CLI) | payer OTHER | END | disposition home or self-care (01) | LOC: CT 09:57 | PROVIDERS: ATTEND Internal Medicine Critical Care Medicine | DX: J44.9 Chronic obstructive pulmonary disease, unspecified (principal); J45.50 Severe persistent asthma, uncomplicated; J43.9 Emphysema, unspecified; J96.11 Chronic respiratory failure with hypoxia; R91.1 Solitary pulmonary nodule; Z87.891 Personal history of nicotine dependence; Z68.1 Body mass index [BMI] 19.9 or less, adult; Z99.81 Dependence on supplemental oxygen ==

== ENCOUNTER 2025-07-17 06:33 | Emergency (ER) | payer OTHER ==
[2025-07-19] MEDS ORDERED: EPINEPHrine Hydrochloride 1 MG/10 ML SYR IV ONE (15:06)
== END 2025-07-17 10:20 ==
LOC: ED 06:33
DX: I46.9 Cardiac arrest, cause unspecified (principal); F32.A Depression, unspecified; J44.9 Chronic obstructive pulmonary disease, unspecified; Z87.891 Personal history of nicotine dependence; Z98.890 Other specified postprocedural states; Z98.84 Bariatric surgery status; Z87.440 Personal history of urinary (tract) infections